=== PATIENT | female | born 1995 | race Caucasian/White ===

== ENCOUNTER 2017-04-28 17:55 | Inpatient (IN) | payer OTHER ==
[2017-04-28] MEDS ORDERED: DEXTROSE 5%-LACTATED RINGERS 1,000 ML IV SCH (21:00)
[2017-04-28] MEDS ORDERED: AMPICILLIN 2 GM/100 ML BAG (PRE-DOCKED) IVPB ONE (21:00)
[2017-04-28] MEDS ORDERED: BETAMET ACET/BETAMET NA PH 30 MG/5 ML VIAL IM ONE (21:43)
[2017-04-28] MEDS ORDERED: TUBERCULIN PPD 5 TU/0.1ML SYRINGE (IN PATIENT USE ONLY) ID ONE (21:45)
--- NOTE | 2017-04-28 21:50 | HP ---
Past Medical History - Admission Chief Complaint: Leaking of fluid History of Present Illness: 21 yo , @ 33.4 weeks gestation, EDC 06/12/17 presents c/o leaking fluid. She denies any abdominal cramps. Last sexual intercourse was 2 days ago. History Source: Patient Limitations to Obtaining History: No Limitations - Past Medical History ...: 1 ...Para: 0 ...EDC by Sono: 06/12/17 - Past Surgical History Past Surgical History: Yes: None Hx Myomectomy: No Hx Transabdominal Cerclage: No - Smoking History Have you smoked in the past 12 months: No - Alcohol/Substance Use History of Substance Use: reports: None - Social History Usual Living Arrangement: Yes: With Parent History of Recent Travel: No Home Medications - Allergies Allergies/Adverse Reactions: Allergies Allergy/AdvReac Type Severity Reaction Status Date / Time No Known Allergies Allergy Verified 01/23/17 15:25 - Home Medications Home Medications: Ambulatory Orders Vit/Iron Fumarate/FA [ Tablet] 1 each PO DAILY 01/23/17 Family Disease History - Family Disease History Family History: Unremarkable Review of Systems - Review of Systems Constitutional: reports: No Symptoms Eyes: reports: No Symptoms HENT: reports: No Symptoms Neck: reports: No Symptoms Cardiovascular: reports: No Symptoms Respiratory: reports: No Symptoms Gastrointestinal: reports: No Symptoms Genitourinary: reports: Other (Rupture of membrane) Breasts: reports: No Symptoms Reported Musculoskeletal: reports: No Symptoms Integumentary: reports: No Symptoms Neurological: reports: No Symptoms Endocrine: reports: No Symptoms Hematology/Lymphatic: reports: No Symptoms, Other Psychiatric: reports: No Symptoms Pain Intensity: 3 Physical Exam - Maternity Vital Signs: Vital Signs Temperature 98.9 F 04/28/17 18:24 Pulse Rate 104 H 04/28/17 18:24 Respiratory Rate 18 04/28/17 18:24 Blood Pressure 123/70 04/28/17 18:24 O2 Sat by Pulse Oximetry (%) Constitutional: Yes: Well Nourished Eyes: Yes: WNL Neck: Yes: Supple Cardiovascular: Yes: Regular Rate and Rhythm Lungs: Clear to auscultation - Abdominal Exam/OB Number of Fetuses: Single Presentation: Vertex - Vaginal Exam/OB Dilatation (cm): 0 Amniotic Membrane Status: Ruptured Nitrazine Test: Positive Amniotic Fluid: Yes: Clear Presentation: Vertex/Position Station: -2 - Physical Exam ...Motor Strength: WNL Psychiatric: Yes: Alert, Oriented Problem List - Problems (1) premature rupture of membranes (PPROM) with unknown onset of labor Code(s): O42.919 - PRETRM REBA ROM, UNSP TIME BETW RUPT AND ONST LABR, UNSP TRI Assessment/Plan R/O Premature rupture of membrane Admit to L&D GBS prophyllaxis Start bethamethasone Daily CBC Consider delivery @ 34 weeks on 05/01/17
[2017-04-28] MEDS: DEXTROSE 5%-LACTATED RINGERS 1,000 ML IV SCH (23:00)
[2017-04-28 23:37] LABS: BASOPHIL 0.1 % (0-2.0); EOSINOPHIL 0.2 % (0-4.5); MCH 20.3 pg (25.7-33.7); MCHC 31.2 g/dl (32.0-36.0); MEAN CELL VOLUME 65.2 fl (80-96); PLATELET COUNT 162 K/MM3 (134-434); RDW 18.9 % (11.6-15.6); WHITE BLOOD COUNT 10.9 K/mm3 (4.0-10.0)
[2017-04-28 23:55] LABS: INR 0.99 (0.82-1.09); PROTHROMBIN TIME (PATIENT) 10.9 SEC (9.98-11.88)
[2017-04-28 23:58] LABS: ACTIVATED PTT 21.2 SECONDS (26.9-34.4)
[2017-04-29 00:06] LABS: ANION GAP 11 (8-16); CALCIUM 8.5 mg/dL (8.5-10.1); CO2 23 mmol/L (21-32); CREATININE 0.5 mg/dL (0.55-1.02); GLUCOSE,RANDOM 150 mg/dL (74-106)
[2017-04-29 00:16] LABS: HYPOCHROMIA 2+; MICROCYTOSIS 2+
[2017-04-29 00:28] LABS: HIV 1 & 2 AB NEGATIVE; HIV 1 AGp24 NEGATIVE
[2017-04-29 01:13] VITALS: BMI 25.4
[2017-04-29] MEDS: AMPICILLIN (PRE-DOCKED) 1 GM/100 ML BAG IVPB SCH ×6 (03:00→22:54)
--- NOTE | 2017-04-29 09:09 | PN ---
Progress Note, Physician Chief Complaint: IUP at 33+ weeks with PPPROM' was admitted for observation, she is afebrile, no uterine contractions, movements are present. She offers no complaints. - Current Medication List Current Medications: Active Medications Ampicillin Sodium (Ampicillin 1 Gram Ivpb (Pre-Docked)) 1 gm IVPB Q4H [facility] Stop: 04/30/17 07:01 Dextrose/Lactated Ringer's (D5-Lr -) 1,000 mls @ 125 mls/hr IV ASDIR [facility] Last Admin: 04/28/17 23:00 Dose: 125 mls/hr - Objective Vital Signs: Vital Signs Temperature 98.4 F 04/29/17 05:47 Pulse Rate 77 04/29/17 05:47 Respiratory Rate 18 04/29/17 05:47 Blood Pressure 106/61 04/29/17 05:47 O2 Sat by Pulse Oximetry (%) Constitutional: Yes: Well Nourished, No Distress, Calm Eyes: Yes: WNL HENT: Yes: WNL Neck: Yes: WNL Cardiovascular: Yes: WNL Respiratory: Yes: Regular Gastrointestinal: Yes: Soft ...Rectal Exam: Yes: Deferred Genitourinary: Yes: WNL Breast(s): Yes: WNL Musculoskeletal: Yes: WNL Extremities: Yes: WNL Edema: No Peripheral Pulses WNL: Yes Integumentary: Yes: WNL Neurological: Yes: Alert, Oriented ...Motor Strength: WNL Psychiatric: Yes: Alert, Oriented Labs: CBC, BMP 04/28/17 23:24 INR, PTT INR 0.99 (0.82-1.09) 04/28/17 23:24 Assessment/Plan IUP with PPPROM, condition stable, current management includes ; series of steroids , CBC daily, maternal monitoring, bedrest with BRP continue expectant management/ vitamins daily
[2017-04-29 11:50] LABS: BASOPHIL 0.2 % (0-2.0); MCHC 30.2 g/dl (32.0-36.0); MEAN CELL VOLUME 65.9 fl (80-96); MEAN PLT VOLUME 11.2 fl (7.5-11.1); NEUTROPHILS 87.9 % (42.8-82.8); PLATELET COUNT 169 K/MM3 (134-434); RDW 18.8 % (11.6-15.6); WHITE BLOOD COUNT 9.6 K/mm3 (4.0-10.0)
[2017-04-29 11:51] LABS: MCH 19.9 pg (25.7-33.7)
[2017-04-29] MEDS: DEXTROSE 5%-LACTATED RINGERS 1,000 ML IV SCH ×2 (17:17→21:45)
[2017-04-29] MEDS ORDERED: BETAMET ACET/BETAMET NA PH 30 MG/5 ML VIAL IM ONE (21:09)
[2017-04-30] MEDS: DEXTROSE 5%-LACTATED RINGERS 1,000 ML IV SCH ×3 (01:50→21:58)
[2017-04-30] MEDS: AMPICILLIN (PRE-DOCKED) 1 GM/100 ML BAG IVPB SCH ×2 (02:57→06:22)
[2017-04-30] MEDS ORDERED: AMPICILLIN (PRE-DOCKED) 1 GM/100 ML BAG IVPB SCH ×2 (06:30→11:00)
--- NOTE | 2017-04-30 10:25 | PN ---
Progress Note (short form) - Note Progress Note: 21 yo with PPROM @ 33.6 weeks gestation, status post 2 doses of Betamethasone, seen and evaluated. She's afebrile. She's on ampicillin. FHR : Positive FM : Positive A/P : PPROM Cerdil induction this pm Continue Ampicillin Problem List - Problems (1) premature rupture of membranes (PPROM) with unknown onset of labor Code(s): O42.919 - PRETRM REBA ROM, UNSP TIME BETW RUPT AND ONST LABR, UNSP TRI
[2017-04-30] MEDS ORDERED: SODIUM CHLORIDE 100 ML IVPB ONE ×4 (11:16→23:25)
[2017-04-30] MEDS ORDERED: AMPICILLIN SODIUM 1 GM VIAL ONE ×4 (11:16→23:25)
[2017-04-30] MEDS: AMPICILLIN - 1 GM in SODIUM CHLORIDE 100 ML IVPB SCH ×4 (11:24→23:27)
[2017-05-01] MEDS ORDERED: SODIUM CHLORIDE 100 ML IVPB ONE ×2 (02:37→07:20)
[2017-05-01] MEDS ORDERED: AMPICILLIN SODIUM 1 GM VIAL ONE ×2 (02:37→07:20)
[2017-05-01] MEDS: AMPICILLIN - 1 GM in SODIUM CHLORIDE 100 ML IVPB SCH ×2 (02:42→07:26)
--- NOTE | 2017-05-01 10:09 | PN ---
Progress Note (short form) - Note Progress Note: 21 yo with PPROM @ 34 weeks gestation, status post 2 doses of Betamethasone , seen and evaluated. She's afebrile. She's on ampicillin. She denies any further leaking of fluid. FHR : Positive FM : Positive VE : Speculum exam : no leakage of fluid, Nitrazine test is negative. Cervix closed A/P : PPROM F/U repeat CBC and BPP Possible D/C home Problem List - Problems (1) premature rupture of membranes (PPROM) with unknown onset of labor Code(s): O42.919 - PRETRM REBA ROM, UNSP TIME BETW RUPT AND ONST LABR, UNSP TRI
[2017-05-01 10:23] VITALS: BP 118/53; PULSE 77; TEMP 97.9
[2017-05-01 11:21] LABS: BASOPHIL 0.1 % (0-2.0); EOSINOPHIL 0.1 % (0-4.5); MCH 20.1 pg (25.7-33.7); MCHC 30.5 g/dl (32.0-36.0); MEAN CELL VOLUME 65.9 fl (80-96); MEAN PLT VOLUME 9.9 fl (7.5-11.1); PLATELET COUNT 153 K/MM3 (134-434); WHITE BLOOD COUNT 10.4 K/mm3 (4.0-10.0)
[2017-05-01 12:17] LABS: HYPOCHROMIA 4+
[2017-05-01 12:18] LABS: ANISOCYTOSIS 2+; MACROCYTOSIS FEW; MICROCYTOSIS 2+; TARGET CELLS 1+; TEAR DROP CELLS 4+
--- NOTE | 2017-05-01 14:24 | DS ---
Physical Exam-[employer] Vital Signs: Vital Signs Temperature 97.9 F 05/01/17 10:22 Pulse Rate 77 05/01/17 10:22 Respiratory Rate 20 05/01/17 10:22 Blood Pressure 118/53 05/01/17 10:22 O2 Sat by Pulse Oximetry (%) Constitutional: Yes: Well Nourished Eyes: Yes: Conjunctiva Clear HENT: Yes: Atraumatic Neck: Yes: Supple Cardiovascular: Yes: Regular Rate and Rhythm Respiratory: Yes: Regular Gastrointestinal: Yes: Normal Bowel Sounds ...Rectal Exam: Yes: WNL External Genitalia: Yes: Normal Vaginal Exam: Yes: Other (NO leakage of fluid) Cervix: Yes: Other (Closed) Uterus: Yes: Other (Gravid) Breast(s): Yes: WNL Neurological: Yes: Alert, Oriented ...Motor Strength: WNL Psychiatric: Yes: Alert, Oriented Labs: CBC, BMP 05/01/17 11:10 04/28/17 23:24 Delivery, Single - Feeding Plan Initial Plan: Exclusive throughout hospitalization Discharge Summary Reason For Visit: PREMATURE RUPTURE MEMBRANE Current Active Problems Anemia affecting in third trimester (Acute) premature rupture of membranes (PPROM) with unknown onset of labor ( Acute) Hospital Course: Patient admitted for PPROM; she receive a course of steroid and IV antibiotic. Condition: Good - Instructions Diet, Activity, Other Instructions: Regular diet F/U with MD in one week Referrals: Alta Pastrana MD [Staff Physician] - (DISCHARGE HOME; RETURN TO OFFICE FOR FOLLOW UP IN ONE WEEK; CONTINUE VITAMINS AND TAKE IRON SUPPLIMENT 3 TIMES A DAY; FOOD LIST HIGH IN IRON GIVEN-EAT 4-6 TIMES/DAY; WHEN CONTRACTIONS START, IF YOUR WATER BREAKS, IF YOU EXPERIENCE VAGINAL BLEEDING LIKE A PERIOD OR DECREASED MOVEMENT RETURN TO HOSPITAL; ANY QUESTIONS/PROBLEMS CALL MD OR LABOR AREA [phone];) Disposition: HOME - Home Medications Comprehensive Discharge Medication List: Ambulatory Orders Iron 1 tablet PO TID 04/29/17 Pnv 29-1 Tablet 1 tablet PO DAILY 04/29/17
== END 2017-05-01 12:50 | disposition home or self-care (01) | DRG 566 ==
LOC: JDEL 17:55 → JLDR 20:00 → J3W 04-29 02:09
PROVIDERS: ADMIT Obstetrics & Gynecology; ATTEND Obstetrics & Gynecology
DX: O42.913 Preterm premature rupture of membranes, unspecified as to length of time between rupture and onset of labor, third trimester (principal); Z3A.33 33 weeks gestation of pregnancy; O99.02 Anemia complicating childbirth; D64.89 Other specified anemias
CPT/HCPCS: 36415; 76819-TC; 80048; 85025; 85610; 85730; 86850; 86900; 86901; 87389; 96372